=== PATIENT | female | born 1965 | race Caucasian/White ===

== ENCOUNTER 2017-09-04 09:11 | Inpatient (IN) | payer MEDICARE ==
[2017-09-04] MEDS: IBUPROFEN 600 MG TAB PO (10:23)
[2017-09-04] MEDS: CEFEPIME 1GM/50 ML (PMX) 50 ML IVPB (10:56)
[2017-09-04 11:18] LABS: ADD MAN DIFF? NO
[2017-09-04 11:22] LABS: BASOPHILS % 0.4 % (0.0-2.0); EOSINOPHILS # 0.2 10^3/ul (0.0-0.5); HEMATOCRIT 34.7 % (37.0-47.0); HEMOGLOBIN 11.3 g/dl (12.0-16.0); LYMPHOCYTES # 0.8 10^3/ul (0.8-2.9); LYMPHOCYTES % 14.7 % (15.0-51.0); MEAN CORPUSCULAR HGB CONC 32.6 g/dl (32.0-37.0); MEAN CORPUSCULAR VOLUME 107.4 fl (82.0-101.0); MEAN PLATELET VOLUME 11.7 fl (7.4-10.4); MONOCYTE # 0.5 10^3/ul (0.3-0.9); MONOCYTES % 10.1 % (0.0-11.0); NEUTROPHIL # 3.7 10^3/ul (1.6-7.5); PLATELET COUNT 111 10^3/UL (140-415); RED BLOOD COUNT 3.23 10^6/ul (4.20-5.40); RED CELL DISTRIBUTION WIDTH 13.5 % (11.5-14.5)
[2017-09-04 11:22] LABS: WHITE BLOOD COUNT 5.2 10^3/ul (4.8-10.8)
[2017-09-04 11:24] LABS: POSITIVE DIFF @See below
[2017-09-04] MEDS: ASPIRIN 81 MG TAB PO (11:38)
[2017-09-04 12:00] LABS: LACTIC ACID 1.9 mmol/L (0.5-2.0)
[2017-09-04 12:16] LABS: ADD UMIC YES; UR ASCORBIC ACID NEGATIVE (NEGATIVE); UR BILIRUBIN (Dip) NEGATIVE (NEGATIVE); UR BLOOD (Dip) 1+ mg/dL (NEGATIVE); UR CLARITY CLEAR (CLEAR); UR COLOR YELLOW (YELLOW); UR GLUCOSE (Dip) 3+ mg/dL (NEGATIVE); UR KETONES (Dip) NEGATIVE (NEGATIVE); UR LEUKOCYTE ESTERASE (Dip) NEGATIVE Leu/ul (NEGATIVE); UR NITRITE (Dip) NEGATIVE (NEGATIVE); UR RBC 3 /HPF (0-5); UR SPECIFIC GRAVITY (Dip) 1.012 (1.003-1.030); UR TOTAL PROTEIN (Dip) 3+ mg/dl (NEGATIVE); UR UROBILINOGEN (Dip) NEGATIVE (NEGATIVE); UR WBC 1 /HPF (0-5)
[2017-09-04 13:33] LABS: FREE T3 2.92 pg/ml (2.77-5.27)
[2017-09-04] MEDS: VANCOMYCIN 1 GM (PMX) 250 ML IVPB (13:45)
[2017-09-04 14:19] LABS: ALANINE AMINOTRANSFERASE 39 IU/L (13-69); ALBUMIN 4.1 g/dl (3.3-4.9); ALBUMIN/GLOBULIN RATIO 1.13; ALKALINE PHOSPHATASE 100 IU/L (42-121); ANION GAP 19 (8-16); ASPARTATE AMINO TRANSFERASE 26 IU/L (15-46); BLOOD UREA NITROGEN 31 mg/dl (7-20); CALCIUM 8.8 mg/dl (8.4-10.2); CARBON DIOXIDE 20 mmol/L (21-31); CHLORIDE 105 mmol/L (97-110); CREATININE 5.78 mg/dl (0.44-1.00); GLUCOSE 175 mg/dl (70-220); LIPASE 217 U/L (23-300); SODIUM 137 mmol/L (135-144); TOTAL PROTEIN 7.7 g/dl (6.1-8.1)
[2017-09-04 14:32] LABS: TROPONIN-I < 0.012 ng/ml (0.00-0.12)
[2017-09-04] MEDS ORDERED: INSULIN REGULAR, HUMAN 100 UNIT/1 ML 3ML VIAL IVP (14:35)
[2017-09-04] MEDS ORDERED: DEXTROSE 50% 50 ML SYRINGE IV ×4 (14:35→16:00)
[2017-09-04 14:37] LABS: POTASSIUM 6.8 mmol/L (3.5-5.1)
[2017-09-04] MEDS ORDERED: NACL 0.9% 3 ML SYG IV (15:00)
[2017-09-04] MEDS ORDERED: ACETAMINOPHEN 325 MG TAB PO ×2 (15:00)
[2017-09-04] MEDS ORDERED: VANCOMYCIN IV PER PHARMACY XX (15:00)
[2017-09-04 15:40] LABS: CREATINE KINASE 62 IU/L (23-200)
[2017-09-04 15:41] LABS: LACTIC ACID 0.7 mmol/L (0.5-2.0)
[2017-09-04 15:52] LABS: CK INDEX 1.9; CK-MB 1.15 ng/ml (0.0-2.4)
[2017-09-04 15:53] LABS: ANION GAP 16 (8-16); BLOOD UREA NITROGEN 34 mg/dl (7-20); CALCIUM 8.7 mg/dl (8.4-10.2); CARBON DIOXIDE 22 mmol/L (21-31); CHLORIDE 106 mmol/L (97-110); CREATININE 5.81 mg/dl (0.44-1.00); GLUCOSE 145 mg/dl (70-220); MAGNESIUM 2.1 mg/dl (1.7-2.5); SODIUM 138 mmol/L (135-144); TROPONIN-I < 0.012 ng/ml (0.00-0.12)
[2017-09-04 15:56] LABS: POTASSIUM 6.1 mmol/L (3.5-5.1)
[2017-09-04] MEDS ORDERED: GLUCOSE GEL 15 GRAM TUBE PO ×2 (16:00)
[2017-09-04] MEDS ORDERED: GLUCOSE GEL 15 GRAM TUBE BUCCAL (16:00)
[2017-09-04] MEDS ORDERED: GLUCAGON 1 MG INJ IM (16:00)
[2017-09-04] MEDS: VANCOMYCIN 750 MG in DEXTROSE 5% 150 ML IVPB (17:04)
[2017-09-04] MEDS: NA POLYST SULFON 15 GM/60 ML BTL PO ×2 (17:05)
[2017-09-04 18:52] LABS: LACTIC ACID 1.2 mmol/L (0.5-2.0)
[2017-09-04 19:01] LABS: POTASSIUM 5.1 mmol/L (3.5-5.1)
[2017-09-04 19:16] LABS: CREATINE KINASE 62 IU/L (23-200)
[2017-09-04 19:29] LABS: CK INDEX 2.3; CK-MB 1.42 ng/ml (0.0-2.4)
[2017-09-04 19:34] LABS: TROPONIN-I < 0.012 ng/ml (0.00-0.12)
[2017-09-04] MEDS: INSULIN GLARGINE [LANtus] 3 ML PEN SC (19:48)
[2017-09-04] MEDS: HEPARIN 5,000 UNIT/0.5 ML VIAL SC (22:00)
[2017-09-04] MEDS: FAMOTIDINE 20 MG TAB PO (22:21)
[2017-09-04] MEDS: INSULIN ASPART [NOVOLOG] 3 ML PEN SC (22:22)
[2017-09-05] MEDS: ONDANSETRON 4 MG INJ IV (01:57)
[2017-09-05] MEDS: ACCU-CHEK XX (02:05)
[2017-09-05 05:02] LABS: ADD MAN DIFF? NO
[2017-09-05 05:13] LABS: WHITE BLOOD COUNT 4.6 10^3/ul (4.8-10.8)
[2017-09-05 05:13] LABS: BASOPHILS % 0.4 % (0.0-2.0); EOSINOPHILS # 0.2 10^3/ul (0.0-0.5); EOSINOPHILS % 5.3 % (0.0-7.0); HEMATOCRIT 32.2 % (37.0-47.0); HEMOGLOBIN 10.5 g/dl (12.0-16.0); LYMPHOCYTES # 1.1 10^3/ul (0.8-2.9); LYMPHOCYTES % 24.7 % (15.0-51.0); MEAN CORPUSCULAR HEMOGLOBIN 35.2 pg (29.0-33.0); MEAN CORPUSCULAR HGB CONC 32.6 g/dl (32.0-37.0); MEAN CORPUSCULAR VOLUME 108.1 fl (82.0-101.0); MEAN PLATELET VOLUME 11.7 fl (7.4-10.4); MONOCYTE # 0.7 10^3/ul (0.3-0.9); MONOCYTES % 15.1 % (0.0-11.0); NEUTROPHIL # 2.5 10^3/ul (1.6-7.5); NEUTROPHILS % 53.8 % (39.0-77.0); PLATELET COUNT 127 10^3/UL (140-415); RED BLOOD COUNT 2.98 10^6/ul (4.20-5.40); RED CELL DISTRIBUTION WIDTH 14.1 % (11.5-14.5)
[2017-09-05 05:36] LABS: CHOL/HDL RATIO 2.6 RATIO; CHOLESTEROL 100 mg/dl (100-200); HDL CHOLESTEROL 38 mg/dl (37-92); LDL CHOLESTEROL,CALCULATED 30 mg/dl; TRIGLYCERIDES 161 mg/dl (0-149)
[2017-09-05 05:36] LABS: PHOSPHORUS 7.2 mg/dl (2.5-4.9)
[2017-09-05 06:05] LABS: THYROID STIMULATING HORMONE 0.914 MIU/L (0.465-4.680)
[2017-09-05] MEDS ORDERED: CEFAZOLIN 1 GM INJ (07:00)
[2017-09-05] MEDS: LEVOTHYROXINE 150 MCG TAB PO (07:00)
[2017-09-05 07:21] LABS: POTASSIUM 5.3 mmol/L (3.5-5.1)
[2017-09-05 07:25] LABS: HEMOGLOBIN A1C 6.5 % (0-5.9)
[2017-09-05] MEDS: SEVELAMER CARBONATE 0.8 GM PKT PO ×3 (07:35→17:28)
[2017-09-05] MEDS: INSULIN ASPART [NOVOLOG] 3 ML PEN SC ×4 (07:35→21:00)
[2017-09-05] MEDS: CHOLECALCIFEROL 1,000 UNIT TAB PO (09:00)
[2017-09-05] MEDS: HEPARIN 5,000 UNIT/0.5 ML VIAL SC ×2 (09:00→22:18)
[2017-09-05] MEDS: ASPIRIN 81 MG TAB PO (09:00)
[2017-09-05] MEDS: ATENOLOL 50 MG TAB PO (09:00)
[2017-09-05] MEDS ORDERED: GELATIN SIZE 100 SPONGE (09:27)
[2017-09-05] MEDS ORDERED: HEPARIN 1000 UNITS/ML 10 ML INJ (09:27)
[2017-09-05] MEDS ORDERED: THROMBIN 5000 UNIT VIAL (09:27)
[2017-09-05] MEDS ORDERED: LIDOCAINE 1% (MPF) 30 ML INJ (09:27)
[2017-09-05] MEDS ORDERED: FENTAnyl 50 MCG/ML VIAL (09:50)
[2017-09-05] MEDS ORDERED: MIDAZOLAM 1 MG/ML 2 ML INJ (09:50)
[2017-09-05] MEDS ORDERED: PROPOFOL 20 ML (09:56)
[2017-09-05] MEDS ORDERED: LIDOCAINE 2% (SDV) 5 ML INJ (09:56)
[2017-09-05] MEDS: HEPARIN 1000 UNITS/ML 10 ML INJ IRR (10:00)
[2017-09-05] MEDS ORDERED: ONDANSETRON 4 MG INJ IV (10:00)
[2017-09-05] MEDS ORDERED: FENTAnyl 50 MCG/ML VIAL IV (10:00)
[2017-09-05] MEDS: LIDOCAINE 1% (MPF) 30 ML INJ INJ (10:00)
[2017-09-05] MEDS ORDERED: PROCHLORPERAZINE 10 MG INJ IV (10:00)
[2017-09-05] MEDS ORDERED: HYDROmorphONE (0.2 MG/ML) 10ML SYG IV (10:00)
[2017-09-05] MEDS ORDERED: MEPERIDINE 25 MG INJ IV (10:00)
[2017-09-05] MEDS ORDERED: DIPHENHYDRAMINE 50 MG INJ IV (10:00)
[2017-09-05] MEDS ORDERED: hydrALAzine 20 MG INJ (10:22)
[2017-09-05] MEDS ORDERED: LABETALOL HCL 20MG INJ (11:25)
[2017-09-05] MEDS: LABETALOL HCL 20MG INJ IV (11:44)
[2017-09-05] MEDS: CEFEPIME 1GM/50 ML (PMX) 50 ML IVPB (14:11)
[2017-09-05 18:37] LABS: HEPATITIS B SURFACE ANTIGEN NEGATIVE (NEGATIVE)
[2017-09-05 18:54] LABS: HEPATITIS C VIRAL ANTIBODY NEGATIVE (NEGATIVE)
[2017-09-05 18:55] LABS: HEPATITIS B SURFACE ANTIBODY POSITIVE (NEGATIVE)
[2017-09-05] MEDS: INSULIN GLARGINE [LANtus] 3 ML PEN SC (20:04)
[2017-09-05] MEDS: FAMOTIDINE 20 MG TAB PO (22:04)
[2017-09-06] MEDS: ACCU-CHEK XX (02:00)
[2017-09-06] MEDS: LEVOTHYROXINE 150 MCG TAB PO (05:37)
[2017-09-06 06:23] LABS: ADD MAN DIFF? NO
[2017-09-06 06:35] LABS: WHITE BLOOD COUNT 4.4 10^3/ul (4.8-10.8)
[2017-09-06 06:35] LABS: BASOPHILS % 0.7 % (0.0-2.0); EOSINOPHILS # 0.2 10^3/ul (0.0-0.5); EOSINOPHILS % 3.8 % (0.0-7.0); HEMATOCRIT 33.6 % (37.0-47.0); HEMOGLOBIN 10.9 g/dl (12.0-16.0); LYMPHOCYTES # 1.4 10^3/ul (0.8-2.9); LYMPHOCYTES % 30.5 % (15.0-51.0); MEAN CORPUSCULAR HEMOGLOBIN 34.5 pg (29.0-33.0); MEAN CORPUSCULAR HGB CONC 32.4 g/dl (32.0-37.0); MEAN CORPUSCULAR VOLUME 106.3 fl (82.0-101.0); MEAN PLATELET VOLUME 11.9 fl (7.4-10.4); MONOCYTE # 0.6 10^3/ul (0.3-0.9); MONOCYTES % 12.9 % (0.0-11.0); NEUTROPHIL # 2.3 10^3/ul (1.6-7.5); NEUTROPHILS % 51.4 % (39.0-77.0); PLATELET COUNT 139 10^3/UL (140-415); RED BLOOD COUNT 3.16 10^6/ul (4.20-5.40); RED CELL DISTRIBUTION WIDTH 13.9 % (11.5-14.5)
[2017-09-06 07:05] LABS: ANION GAP 20 (8-16); BLOOD UREA NITROGEN 30 mg/dl (7-20); CARBON DIOXIDE 24 mmol/L (21-31); CHLORIDE 101 mmol/L (97-110); CREATININE 5.46 mg/dl (0.44-1.00); GLUCOSE 156 mg/dl (70-220); MAGNESIUM 1.8 mg/dl (1.7-2.5); POTASSIUM 4.1 mmol/L (3.5-5.1); SODIUM 141 mmol/L (135-144)
[2017-09-06] MEDS: INSULIN ASPART [NOVOLOG] 3 ML PEN SC ×4 (08:39→21:00)
[2017-09-06] MEDS: ASPIRIN 81 MG TAB PO (09:56)
[2017-09-06] MEDS: ATENOLOL 50 MG TAB PO (09:56)
[2017-09-06] MEDS: CHOLECALCIFEROL 1,000 UNIT TAB PO (09:56)
[2017-09-06] MEDS: SEVELAMER CARBONATE 0.8 GM PKT PO ×3 (09:56→17:31)
[2017-09-06] MEDS: HEPARIN 5,000 UNIT/0.5 ML VIAL SC ×2 (10:02→21:14)
[2017-09-06] MEDS: CEFEPIME 1GM/50 ML (PMX) 50 ML IVPB (12:20)
[2017-09-06] MEDS: VANCOMYCIN 750 MG in DEXTROSE 5% 150 ML IVPB (17:31)
[2017-09-06] MEDS: FAMOTIDINE 20 MG TAB PO (20:58)
[2017-09-06] MEDS: INSULIN GLARGINE [LANtus] 3 ML PEN SC (21:15)
[2017-09-07] MEDS: hydrALAzine 20 MG INJ IV ×2 (00:07→05:40)
[2017-09-07] MEDS: ACCU-CHEK XX (02:00)
[2017-09-07] MEDS: LEVOTHYROXINE 150 MCG TAB PO (05:40)
[2017-09-07] MEDS: INSULIN ASPART [NOVOLOG] 3 ML PEN SC ×4 (08:34→21:33)
[2017-09-07] MEDS: ASPIRIN 81 MG TAB PO (08:37)
[2017-09-07] MEDS: CHOLECALCIFEROL 1,000 UNIT TAB PO (08:37)
[2017-09-07] MEDS: SEVELAMER CARBONATE 0.8 GM PKT PO ×3 (08:37→18:21)
[2017-09-07] MEDS: HEPARIN 5,000 UNIT/0.5 ML VIAL SC ×2 (08:45→21:32)
[2017-09-07] MEDS: METOPROLOL 50 MG TAB PO ×2 (09:01→21:30)
[2017-09-07] MEDS: CEFEPIME 1GM/50 ML (PMX) 50 ML IVPB (11:32)
[2017-09-07] MEDS: FAMOTIDINE 20 MG TAB PO (21:30)
[2017-09-07] MEDS: INSULIN GLARGINE [LANtus] 3 ML PEN SC (21:34)
[2017-09-08] MEDS: ACCU-CHEK XX (01:35)
[2017-09-08] MEDS: LEVOTHYROXINE 150 MCG TAB PO (06:53)
[2017-09-08] MEDS: INSULIN ASPART [NOVOLOG] 3 ML PEN SC ×3 (07:55→16:54)
[2017-09-08] MEDS: CHOLECALCIFEROL 1,000 UNIT TAB PO (08:02)
[2017-09-08] MEDS: ASPIRIN 81 MG TAB PO (08:02)
[2017-09-08] MEDS: DOCUSATE SODIUM 100 MG CAP PO (08:02)
[2017-09-08] MEDS: SEVELAMER CARBONATE 0.8 GM PKT PO ×3 (08:02→16:54)
[2017-09-08] MEDS: METOPROLOL 50 MG TAB PO (08:05)
[2017-09-08] MEDS: HEPARIN 5,000 UNIT/0.5 ML VIAL SC (08:12)
[2017-09-08 08:27] LABS: ADD MAN DIFF? NO
[2017-09-08 08:33] LABS: BASOPHILS % 0.5 % (0.0-2.0); EOSINOPHILS # 0.2 10^3/ul (0.0-0.5); EOSINOPHILS % 4.4 % (0.0-7.0); HEMATOCRIT 30.4 % (37.0-47.0); HEMOGLOBIN 10.2 g/dl (12.0-16.0); LYMPHOCYTES % 49.5 % (15.0-51.0); MEAN CORPUSCULAR HEMOGLOBIN 35.1 pg (29.0-33.0); MEAN CORPUSCULAR HGB CONC 33.6 g/dl (32.0-37.0); MEAN CORPUSCULAR VOLUME 104.5 fl (82.0-101.0); MEAN PLATELET VOLUME 11.7 fl (7.4-10.4); MONOCYTE # 0.5 10^3/ul (0.3-0.9); MONOCYTES % 12.5 % (0.0-11.0); NEUTROPHIL # 1.3 10^3/ul (1.6-7.5); NEUTROPHILS % 32.9 % (39.0-77.0); PLATELET COUNT 131 10^3/UL (140-415); RED BLOOD COUNT 2.91 10^6/ul (4.20-5.40); RED CELL DISTRIBUTION WIDTH 13.6 % (11.5-14.5)
[2017-09-08 08:33] LABS: WHITE BLOOD COUNT 4.1 10^3/ul (4.8-10.8)
[2017-09-08 08:58] LABS: ANION GAP 23 (8-16); BLOOD UREA NITROGEN 77 mg/dl (7-20); CALCIUM 8.7 mg/dl (8.4-10.2); CARBON DIOXIDE 19 mmol/L (21-31); CHLORIDE 99 mmol/L (97-110); CREATININE 10.72 mg/dl (0.44-1.00); GLUCOSE 130 mg/dl (70-220); POTASSIUM 4.7 mmol/L (3.5-5.1); SODIUM 136 mmol/L (135-144)
== END 2017-09-08 18:40 | disposition home or self-care (01) | DRG 252 ==
LOC: E/R 09:11 → REC 09-05 06:29 → MS3 09-05 06:29 → TEL 09-05 20:50 → MS3 11:47
PROVIDERS: Family Medicine
PROC: 05LY0ZZ Occlusion of Upper Vein, Open Approach (ICD-10-PCS; principal; 2017-09-05 09:45)
PROC: 5A1D70Z Performance of Urinary Filtration, Intermittent, Less than 6 Hours Per Day (ICD-10-PCS; 2017-09-05 09:45)
DX: T82.868A Thrombosis due to vascular prosthetic devices, implants and grafts, initial encounter (principal); G92 Toxic encephalopathy; E11.22 Type 2 diabetes mellitus with diabetic chronic kidney disease; N18.6 End stage renal disease; I12.0 Hypertensive chronic kidney disease with stage 5 chronic kidney disease or end stage renal disease; R65.10 Systemic inflammatory response syndrome (SIRS) of non-infectious origin without acute organ dysfunction; N39.0 Urinary tract infection, site not specified; L03.113 Cellulitis of right upper limb; E66.01 Morbid (severe) obesity due to excess calories; Z68.36 Body mass index [BMI] 36.0-36.9, adult; E03.9 Hypothyroidism, unspecified; D63.1 Anemia in chronic kidney disease; K76.0 Fatty (change of) liver, not elsewhere classified; R60.9 Edema, unspecified; Z79.4 Long term (current) use of insulin; Z79.82 Long term (current) use of aspirin; Y83.2 Surgical operation with anastomosis, bypass or graft as the cause of abnormal reaction of the patient, or of later complication, without mention of misadventure at the time of the procedure
CPT/HCPCS: 70450; 70551; 71045; 80048; 80053; 80061; 80202; 81001; 82550; 82553; 82962; 83036; 83605; 83690; 83735; 84100; 84132; 84439; 84443; 84481; 84484; 85025; 86706; 86803; 87040; 87086; 87340; 90935; 93005; 93971; 96372; 96374; 96375; 97161; 99285-25

== ENCOUNTER → 2017-09-25 | Outpatient (CLI) | payer MEDICARE, MEDICAID | END | disposition home or self-care (01) | LOC: RAD 09:30 | DX: Z01.818 Encounter for other preprocedural examination (principal); N18.6 End stage renal disease | CPT/HCPCS: 71046; 76700 ==

== ENCOUNTER 2017-09-26 13:08 | Day surgery (SDC) | payer MEDICARE, MEDICAID ==
[2017-09-26] MEDS ORDERED: DEXTROSE 50% 50 ML SYRINGE (13:52)
[2017-09-26] MEDS ORDERED: DEXTROSE 50% 50 ML SYRINGE IV (14:00)
[2017-09-26] MEDS: DEXTROSE 50% 50 ML SYRINGE IV (14:18)
[2017-09-26] MEDS ORDERED: LIDOCAINE 1% (MPF) 30 ML INJ (14:29)
[2017-09-26 14:36] LABS: POTASSIUM 4.6 mmol/L (3.5-5.1)
[2017-09-26] MEDS ORDERED: PROPOFOL 40 ML (14:48)
[2017-09-26] MEDS ORDERED: MIDAZOLAM 1 MG/ML 2 ML INJ (14:49)
[2017-09-26] MEDS ORDERED: ROPIVACAINE 0.2% 20 ML VIAL ×2 (14:49→16:32)
[2017-09-26] MEDS ORDERED: CEFAZOLIN 1 GM INJ (14:50)
[2017-09-26] MEDS ORDERED: FENTAnyl 50 MCG/ML VIAL (14:51)
[2017-09-26] MEDS ORDERED: hydrALAzine 20 MG INJ (15:04)
[2017-09-26] MEDS ORDERED: ONDANSETRON 4 MG INJ (15:19)
[2017-09-26] MEDS: HEPARIN 1000 UNITS/ML 10 ML INJ (16:04)
[2017-09-26] MEDS: METOCLOPRAMIDE 10 MG INJ (16:05)
[2017-09-26] MEDS ORDERED: OXYCODONE/ACETAMINOPHEN (5/325) TAB PO ×2 (17:00)
[2017-09-26] MEDS ORDERED: ONDANSETRON 4 MG INJ IV (17:00)
[2017-09-26] MEDS ORDERED: HYDROmorphONE (0.2 MG/ML) 10ML SYG IV ×3 (17:00)
[2017-09-26] MEDS: hydrALAzine 20 MG INJ IV ×2 (17:47→18:17)
== END 2017-09-26 18:38 | disposition home or self-care (01) ==
LOC: SDS 13:08
DX: T82.868A Thrombosis due to vascular prosthetic devices, implants and grafts, initial encounter (principal); I12.0 Hypertensive chronic kidney disease with stage 5 chronic kidney disease or end stage renal disease; E11.22 Type 2 diabetes mellitus with diabetic chronic kidney disease; N18.6 End stage renal disease; Z99.2 Dependence on renal dialysis; Z79.4 Long term (current) use of insulin; E66.01 Morbid (severe) obesity due to excess calories; Z68.30 Body mass index [BMI] 30.0-30.9, adult; Y83.2 Surgical operation with anastomosis, bypass or graft as the cause of abnormal reaction of the patient, or of later complication, without mention of misadventure at the time of the procedure
CPT/HCPCS: 36833; 82962; 84132; 88305